=== PATIENT | male | born 1950 | race Caucasian/White ===

== ENCOUNTER 2020-10-22 11:10 | Inpatient (IN) | payer MEDICARE ==
[~2020-10-22] VITALS: Ht 188 cm; Wt 117.0 kg
[2020-10-22] VITALS (7 sets, daily range): BP systolic 79–130; BP diastolic 53–83
[~2020-10-22 11:10] MED LIST: etomidate 2mg/ml inj. ONE
[2020-10-22 11:20] LABS: ABG BASE EXCESS -2.8 mmol/L (-2.0-2.0); ABG HCO3 20.6 mmol/L (22.0-26.0); ABG OXYGEN SATURATION 76.3 % (94-97); ABG PCO2 (T) 32.1 mmHg (35.0-48.0); ABG PO2 (T) 41.4 mmHg (75.0-100.0); ALLEN'S TEST POSITIVE; FCOHb 1.4 % (0.0-3.9); FLOW 30 L/min; FMetHb 0.1 % (0.0-1.5); FO2Hb 75.2 % (94-97); TOTAL HEMOGLOBIN 13.9 G/dl (14.0-18.0)
[2020-10-22] MEDS ORDERED: FENTANYL-0.9 % NACL/PF 100 ML IV PRN (11:55)
[2020-10-22] MEDS ORDERED: midazolam 1 mg/ML 2ml injection IV ONE (11:55)
[2020-10-22] MEDS ORDERED: fentaNYL/PF 50MCG/1 ML 2ML syringe IV PRN (11:55)
[2020-10-22] MEDS ORDERED: midazolam 100mg in NS 100ml 100 ML IV PRN (11:55)
[2020-10-22 11:59] LABS: BASOPHILS # (AUTO) 0.1 X10'3 (0-0.2); BASOPHILS % (AUTO) 0.4 % (0-1); EOSINOPHILS % (AUTO) 0 % (0-6); HEMATOCRIT 40.9 % (42.0-52.0); HEMOGLOBIN 13.3 g/dl (14.0-17.9); LYMPHOCYTES # (AUTO) 0.5 X10'3 (1.1-4.8); MEAN CORPUSCULAR HEMOGLOBIN 29.6 PG (27.0-31.0); MEAN CORPUSCULAR HGB CONC 32.4 g/dL (33.0-36.5); MEAN CORPUSCULAR VOLUME 91.4 FL (78-98); MEAN PLATELET VOLUME 8.9 FL (7.4-10.4); MONOCYTES # (AUTO) 1.6 X10'3 (0-0.9); MONOCYTES % (AUTO) 6.7 % (2-12); NEUTROPHILS % (AUTO) 90.9 % (42-75); PLATELET COUNT 346 X10'3 (140-440); RED BLOOD COUNT 4.48 X10'6 (4.70-6.10); RED CELL DISTRIBUTION WIDTH 20.4 % (11.5-14.5); WHITE BLOOD COUNT 23.1 X10'3 (4.5-11.0)
[2020-10-22 12:02] LABS: D-DIMER 1.88 MG/L FEU (0-0.50)
[2020-10-22 12:05] LABS: ALANINE AMINOTRANSFERASE 19 U/L (12-78); ALBUMIN 2.4 G/DL (3.4-5.0); ALBUMIN/GLOBULIN RATIO 0.5 (1.1-1.5); ALKALINE PHOSPHATASE 175 IU/L (46-116); ANION GAP 8 (8-16); ASPARTATE AMINO TRANSFERASE 20 U/L (10-37); BLOOD UREA NITROGEN 45 MG/DL (7-18); BUN/CREATININE RATIO 24.7 (5.4-32.0); CALCIUM 8.6 MG/DL (8.5-10.1); CHLORIDE 106 MMOL/L (99-107); CREATININE 1.82 MG/DL (0.60-1.10); GLUCOSE 197 MG/DL (70-104); POTASSIUM 4.6 MMOL/L (3.5-5.1); SODIUM 138 MMOL/L (135-145); TOTAL CARBON DIOXIDE 24.1 MMOL/L (24-32); TOTAL PROTEIN 7.1 G/DL (6.4-8.2); eGFR 37 ML/MIN
[2020-10-22 12:12] LABS: TROPONIN I < 0.04 NG/ML (0.0-0.05)
[2020-10-22 12:31] LABS: ABG BASE EXCESS -2.6 mmol/L (-2.0-2.0); ABG HCO3 21.5 mmol/L (22.0-26.0); ABG OXYGEN SATURATION 95.8 % (94-97); ABG PCO2 (T) 35.4 mmHg (35.0-48.0); ABG PO2 (T) 87.1 mmHg (75.0-100.0); ALLEN'S TEST POSITIVE; FCOHb 1.2 % (0.0-3.9); FMetHb 0.2 % (0.0-1.5); FO2Hb 94.5 % (94-97); TOTAL HEMOGLOBIN 13.7 G/dl (14.0-18.0)
[2020-10-22 12:32] LABS: ANISOCYTOSIS 3+; PLATELET ESTIMATE NORMAL
[2020-10-22] MEDS ORDERED: morphine 2 MG/ML inj. syringe IV PRN (12:55)
[2020-10-22] MEDS ORDERED: cefepime 1GM/NS ADD-VANTAGE 100 ML IV SCH (12:55)
[2020-10-22] MEDS ORDERED: LIDOcaine 2% 10ml TOPICAL JELLY (Urojet) TP ONE (12:55)
[2020-10-22] MEDS ORDERED: morphine 4 MG/ML inj SYRINge IV PRN (12:55)
[2020-10-22] MEDS ORDERED: potassium Cl 40MEQ/1/2NS 520ml 520 ML IV PRN ×2 (12:55)
[2020-10-22] MEDS ORDERED: potassium Cl 20 mEq SR tablet PO PRN ×2 (12:55)
[2020-10-22] MEDS ORDERED: potassium Cl 40MEQ/250ML bag 270 ML IV PRN ×2 (12:55)
[2020-10-22] MEDS ORDERED: magnesium hydroxide 30ml (MOM) UD suspension PO PRN (12:55)
[2020-10-22] MEDS ORDERED: HYDROcodone/acetaminophen 10/325mg tab PO PRN (12:55)
[2020-10-22] MEDS ORDERED: ondansetron/PF 4mg/2ml inj IV PRN (12:55)
[2020-10-22] MEDS ORDERED: acetaminophen 325mg tablet PO PRN (12:55)
[2020-10-22] MEDS ORDERED: aztreonam inj. 2,000 MG in dextrose 5%-water 100 ML IV SCH (14:00)
[2020-10-22] MEDS ORDERED: aztreonam inj. 2,000 MG in normal saline 100ml IV soln 100 ML IV SCH (14:00)
[2020-10-22] MEDS: aztreonam inj. 2,000 MG in normal saline 100ml IV soln 100 ML IV SCH (14:46)
[2020-10-22] MEDS: normal saline 1000ml 1,000 ML IV SCH (14:46)
[2020-10-22] MEDS ORDERED: WARF-55 PO (14:58)
[2020-10-22] MEDS ORDERED: ENAL10TA19 PO (14:58)
[2020-10-22] MEDS ORDERED: ATOR40TA72 PO (14:58)
[2020-10-22] MEDS ORDERED: EZET10TA48 PO (14:58)
[2020-10-22] MEDS ORDERED: AMIO200T61 PO (14:58)
[2020-10-22] MEDS ORDERED: METO100T14 PO (14:58)
[2020-10-22] MEDS ORDERED: LORazepam 2 mg/ml vial IV ONE (17:30)
[2020-10-22] MEDS ORDERED: LORazepam 2 mg/ml vial ONE (17:34)
--- NOTE | 2020-10-22 17:45 | NUR ---
ASSUME CARE PT AWAKE TALKING WITH RT AT SITE ADJUSTING THE BIPAP FM. PT ANXIOUS ASKING OVER AND OVER FOR CELL PHONE REPOSITION TO BED WITHOUT DIFF DENIES PAIN, NOTED RR 33 SHALLOW ENC SLOW DEEP BREATHES. IV TO RIGHT HAND INTACT PURDY CATH TO GRAVITY DRAINING NEERU COLOR URINE. CONT TO MONITOR. Addendum: 10/22/20 at 1755 by Nida Palacios RN Amended: Links added.
[2020-10-22] MEDS: vancomycin/NS 1 GM ADD-VANTAGE 250 ML IV SCH (17:47)
--- NOTE | 2020-10-22 19:00 | NUR ---
RN Note -Called Dr. Yi for precedex for anxiety and agitation. Order received.
[2020-10-22] MEDS: docusate sod 100mg capsule PO SCH ×2 (19:41→22:42)
[2020-10-22] MEDS: heparin, porcine 5000 units/ml vial SQ SCH ×2 (20:00→20:05)
[2020-10-22] MEDS: dexmedetomidin/NS 400mcg/100ml 100 ML IV SCH (20:05)
[2020-10-22] MEDS: acetaminophen 325mg tablet PO PRN (22:42)
[2020-10-23] VITALS (23 sets, daily range): BP systolic 79–157; BP diastolic 43–89
[2020-10-23] MEDS: aztreonam inj. 2,000 MG in normal saline 100ml IV soln 100 ML IV SCH ×2 (00:27→08:09)
--- NOTE | 2020-10-23 04:00 | NUR ---
RN Note -Pt upset about Gecko getting in his eyes. Adjusted Gecko so it wasn't in his eyes. Pt upset about placement of Gecko. Lifted mask so pt could adjust Gecko to his liking, which he placed so that it was in his eyes. Replaced mask. Pt pulled Gecko off and threw it across the room.
[2020-10-23] MEDS: dexmedetomidin/NS 400mcg/100ml 100 ML IV SCH (04:08)
[2020-10-23] MEDS: normal saline 1000ml 1,000 ML IV SCH ×2 (05:33→21:54)
[2020-10-23] MEDS: acetaminophen 325mg tablet PO PRN ×3 (05:34→22:56)
[2020-10-23 06:07] LABS: BASOPHILS % (AUTO) 0.1 % (0-1); EOSINOPHILS % (AUTO) 0 % (0-6); HEMATOCRIT 34.8 % (42.0-52.0); HEMOGLOBIN 11.3 g/dl (14.0-17.9); LYMPHOCYTES # (AUTO) 0.4 X10'3 (1.1-4.8); MEAN CORPUSCULAR HEMOGLOBIN 29.4 PG (27.0-31.0); MEAN CORPUSCULAR HGB CONC 32.5 g/dL (33.0-36.5); MEAN CORPUSCULAR VOLUME 90.5 FL (78-98); MEAN PLATELET VOLUME 8.9 FL (7.4-10.4); MONOCYTES # (AUTO) 1.8 X10'3 (0-0.9); MONOCYTES % (AUTO) 10.5 % (2-12); NEUTROPHILS # (AUTO) 15.2 X10'3 (1.8-7.7); NEUTROPHILS % (AUTO) 87.4 % (42-75); PLATELET COUNT 304 X10'3 (140-440); RED BLOOD COUNT 3.85 X10'6 (4.70-6.10); RED CELL DISTRIBUTION WIDTH 19.6 % (11.5-14.5); WHITE BLOOD COUNT 17.4 X10'3 (4.5-11.0)
[2020-10-23 06:21] LABS: ALANINE AMINOTRANSFERASE 20 U/L (12-78); ALBUMIN/GLOBULIN RATIO 0.5 (1.1-1.5); ALKALINE PHOSPHATASE 154 IU/L (46-116); ANION GAP 8 (8-16); ASPARTATE AMINO TRANSFERASE 20 U/L (10-37); BILIRUBIN,TOTAL 0.7 MG/DL (0.1-1.0); BLOOD UREA NITROGEN 54 MG/DL (7-18); BUN/CREATININE RATIO 31.2 (5.4-32.0); CALCIUM 8.3 MG/DL (8.5-10.1); CHLORIDE 111 MMOL/L (99-107); CREATININE 1.73 MG/DL (0.60-1.10); GLUCOSE 129 MG/DL (70-104); MAGNESIUM 2.3 MG/DL (1.5-2.4); PHOSPHORUS 4.8 MG/DL (2.3-4.5); POTASSIUM 4.7 MMOL/L (3.5-5.1); SODIUM 143 MMOL/L (135-145); TOTAL CARBON DIOXIDE 24.5 MMOL/L (24-32); eGFR 39 ML/MIN
[2020-10-23] MEDS ORDERED: rocuronium 10mg/ml inj IV ONE (08:00)
[2020-10-23] MEDS ORDERED: sod chloride 0.9% 10ml flush syringe IV ONE (08:00)
[2020-10-23] MEDS ORDERED: etomidate 2mg/ml inj. ONE (08:00)
[2020-10-23] MEDS: heparin, porcine 5000 units/ml vial SQ SCH (08:00)
--- NOTE | 2020-10-23 08:00 | NUR ---
Desat quickly off bipap, unable to eat off bipap. tried non rebreather and sat drop 79%
--- NOTE | 2020-10-23 08:15 | NUR ---
0800 attempt drink of water on nonrebreather- sat dropped to 79%. rr 27, back on bipap 91-96% rr 16-20 with 85% fio2.
--- NOTE | 2020-10-23 08:44 | NUR ---
md palomo rounded and is adressing anticoags. pt refused heparin and is requesting elequis. will eval and place orders he said
--- NOTE | 2020-10-23 09:00 | NUR ---
Inspected pt sacral and lamberto area. he does not have a scrotal wound. his skin tto the lamberot area is intact and his rectum is red but blanches and intact. removed optifoam from over his rectum and did not reapply. turn q2
[2020-10-23] MEDS ORDERED: apixaban 5mg tablet PO SCH (09:40)
[2020-10-23] MEDS ORDERED: bisacodyl 10mg suppository rectal RC PRN (10:40)
[2020-10-23] MEDS: methylPREDNISolone sod succ 125mg/2ml vial IV SCH ×2 (10:59→19:52)
[2020-10-23] MEDS: polyethylene glycol 3350 17gm powd pack PO SCH (11:00)
[2020-10-23] MEDS: apixaban 5mg tablet PO SCH ×2 (11:03→19:53)
[2020-10-23 11:30] LABS: D-DIMER 2.27 MG/L FEU (0-0.50)
[2020-10-23 11:39] LABS: C-REACTIVE PROTEIN 9.86 MG/DL (0.0-0.5)
--- NOTE | 2020-10-23 14:50 | NUR ---
Renal US now
--- NOTE | 2020-10-23 15:00 | NUR ---
aprox this time venous doppler of legs completed and tech reports no "clots seen in either leg, no dvt". will cont to use scd's Addendum: 10/23/20 at 1755 by Rashard Torres RN as per order
[2020-10-23 15:33] LABS: CLARITY,URINE SLIGHTLY CLOUDY (Clear); COLOR,URINE YELLOW (Yellow); GLUCOSE, URINE NEGATIVE (Neg); KETONES,URINE NEGATIVE (Neg); LEUKOCYTE ESTERASE ,URINE NEGATIVE (Neg); NITRITES, URINE NEGATIVE (Neg); OCCULT BLOOD,URINE SMALL (Neg); PH,URINE 5.5 (4.8-8.0); PROTEIN,URINE NEGATIVE (Neg); UROBILINOGEN,URINE 0.2 E.U/dL (0.2-1.0)
[2020-10-23] MEDS: vancomycin/NS 1 GM ADD-VANTAGE 250 ML IV SCH (15:37)
[2020-10-23 15:41] LABS: TOTAL PROTEIN,URINE RANDOM 35.2 MG/DL
[2020-10-23 15:53] LABS: UA COLLECTION TYPE FOLEY CATH
[2020-10-23 15:54] LABS: URIC ACID CRYSTALS 4+ /HPF (NEGATIVE)
[2020-10-23 15:55] LABS: BACTERIA,URINE FEW /HPF (Neg); SQUAMOUS EPITHELIAL CELL,UR FEW /LPF (FEW); WBC,URINE 0-4 /HPF (0-4)
[2020-10-23 16:27] LABS: ABG BASE EXCESS -1.6 mmol/L (-2.0-2.0); ABG HCO3 22.5 mmol/L (22.0-26.0); ABG OXYGEN SATURATION 94.8 % (94-97); ABG PCO2 (T) 36.1 mmHg (35.0-48.0); ABG PO2 (T) 74.4 mmHg (75.0-100.0); ALLEN'S TEST POSITIVE; FCOHb 0.6 % (0.0-3.9); FMetHb 0.3 % (0.0-1.5); FO2Hb 93.9 % (94-97); PATIENT TEMPERATURE 36.9; TIDAL VOLUME 1113 mL; TOTAL HEMOGLOBIN 13.1 G/dl (14.0-18.0)
--- NOTE | 2020-10-23 16:28 | NUR ---
spoke to regarding daughters requirements to see dad tomorrow, reviewed that she needs a vac card or negative covid test <72hr old. Pt had ABG drawn near this time.
[2020-10-23 16:57] LABS: UA EOSINOPHILS NO EOS /HPF
--- NOTE | 2020-10-23 18:00 | NUR ---
assisted pt to eat meal- he ate the beef and potatoes, some salad and veggies. tolerated ok. held nonrebreather in oplace while he chewed and he maintained 86% during hurried meal. asid he wasnt" feeling gassed" as bad as earlier when off bipap. on bipap at 70% fio2 he quickly recovered to 91-92%. SPoke to MD gay around 1500 about his resp rate of 30-40 and crackles in bases and md said he is aware- no orders, pt was satting 91-92 at that time as well on 80% and he wanted to continue to ween cpap.
--- NOTE | 2020-10-23 18:15 | NUR ---
Patient in room ICU 2039. I have received report from Rashard GRIFFIN at bedside and had the opportunity to ask questions and assume patient care.
[2020-10-23] MEDS: lactobacillus rhamnosus 10,000 MMU CELLS/CAPSULE PO SCH (19:52)
[2020-10-23] MEDS: docusate sod 100mg capsule PO SCH (19:52)
[2020-10-23] MEDS ORDERED: risperiDONE 0.5mg tablet PO ONE (20:15)
--- NOTE | 2020-10-23 20:18 | NUR ---
Patient stated that he needs Melatonin to sleep & Ativan to calm him down. Called to Dr. Yi & Dr. Yi gave order of 10mg of Melatonin HS daily & one time dose 1mg of Risperdal.
[2020-10-23] MEDS: Melatonin 3mg tablet PO SCH (21:09)
[2020-10-24] VITALS (23 sets, daily range): BP systolic 107–157; BP diastolic 57–92
[2020-10-24] MEDS: aztreonam inj. 2,000 MG in normal saline 100ml IV soln 100 ML IV SCH ×4 (01:34→23:24)
[2020-10-24] MEDS: normal saline 1000ml 1,000 ML IV SCH ×2 (02:13→18:15)
[2020-10-24 06:15] LABS: BASOPHILS % (AUTO) 0.4 % (0-1); EOSINOPHILS % (AUTO) 0 % (0-6); HEMATOCRIT 36.2 % (42.0-52.0); HEMOGLOBIN 11.8 g/dl (14.0-17.9); LYMPHOCYTES # (AUTO) 0.3 X10'3 (1.1-4.8); LYMPHOCYTES % (AUTO) 2.4 % (21-51); MEAN CORPUSCULAR HGB CONC 32.5 g/dL (33.0-36.5); MEAN CORPUSCULAR VOLUME 92.3 FL (78-98); MEAN PLATELET VOLUME 8.5 FL (7.4-10.4); MONOCYTES # (AUTO) 0.9 X10'3 (0-0.9); MONOCYTES % (AUTO) 7.3 % (2-12); NEUTROPHILS # (AUTO) 11.2 X10'3 (1.8-7.7); NEUTROPHILS % (AUTO) 89.9 % (42-75); PLATELET COUNT 282 X10'3 (140-440); RED BLOOD COUNT 3.92 X10'6 (4.70-6.10); RED CELL DISTRIBUTION WIDTH 19.9 % (11.5-14.5); WHITE BLOOD COUNT 12.4 X10'3 (4.5-11.0)
[2020-10-24 06:29] LABS: ALANINE AMINOTRANSFERASE 20 U/L (12-78); ALBUMIN 1.9 G/DL (3.4-5.0); ALBUMIN/GLOBULIN RATIO 0.5 (1.1-1.5); ALKALINE PHOSPHATASE 143 IU/L (46-116); ANION GAP 9 (8-16); ASPARTATE AMINO TRANSFERASE 14 U/L (10-37); BILIRUBIN,TOTAL 0.6 MG/DL (0.1-1.0); BLOOD UREA NITROGEN 47 MG/DL (7-18); BUN/CREATININE RATIO 36.4 (5.4-32.0); CALCIUM 8.5 MG/DL (8.5-10.1); CHLORIDE 112 MMOL/L (99-107); CREATININE 1.29 MG/DL (0.60-1.10); GLUCOSE 169 MG/DL (70-104); MAGNESIUM 2.7 MG/DL (1.5-2.4); PHOSPHORUS 3.4 MG/DL (2.3-4.5); POTASSIUM 4.9 MMOL/L (3.5-5.1); SODIUM 145 MMOL/L (135-145); TOTAL CARBON DIOXIDE 23.9 MMOL/L (24-32); TOTAL PROTEIN 5.9 G/DL (6.4-8.2); eGFR 55 ML/MIN
--- NOTE | 2020-10-24 06:37 | NUR ---
Problems reprioritized. Patient report given, questions answered & plan of care reviewed with Ketan GRIFFIN at bedside.
[2020-10-24] MEDS: methylPREDNISolone sod succ 125mg/2ml vial IV SCH ×2 (08:44→19:36)
[2020-10-24] MEDS: amiodarone 200mg tablet PO SCH (08:45)
[2020-10-24] MEDS: lactobacillus rhamnosus 10,000 MMU CELLS/CAPSULE PO SCH ×2 (08:45→19:39)
[2020-10-24] MEDS: atorvastatin 20mg tablet PO SCH (08:45)
[2020-10-24] MEDS: apixaban 5mg tablet PO SCH ×2 (08:45→19:39)
[2020-10-24] MEDS: docusate sod 100mg capsule PO SCH ×2 (08:45→19:39)
[2020-10-24] MEDS: vancomycin/NS 1 GM ADD-VANTAGE 250 ML IV SCH ×2 (08:49→19:56)
[2020-10-24] MEDS: polyethylene glycol 3350 17gm powd pack PO SCH (08:49)
[2020-10-24] MEDS: pantoprazole 40mg Tablet.DR PO SCH (08:49)
[2020-10-24] MEDS: ezetimibe 10mg tablet PO SCH (09:47)
[2020-10-24 10:07] LABS: ANISOCYTOSIS 2+; BURR CELLS 2+; PLATELET ESTIMATE NORMAL
[2020-10-24 10:08] LABS: SCHISTOCYTES FEW
--- NOTE | 2020-10-24 12:36 | NUR ---
TPN Consult: Pt admit DX respiratory failure and JOHNSON improving hx recent COVID-19 infection off isolation per ID MD note. Pt PO 0% regular diet currently bipap dependent on 31L/min at 80% unable to tolerate PO or meds given desaturation per RN. Pending PICC line w/ TPN to start today per pilot captain; recs below. Noted sacral pinpoint breakdown w/ optifoam in place per EMR; picture in chart reviewed. LBM 9/6 previously receiving colace and miralax prior to current NPO status. Will monitor for PN tolerance and adjustment needs as medically indicated. Rec: 1. TPN via PICC line per MD using 2:1 Clinimix E 5/15 at 120ml/hr goal w/ separate 250ml 20% intralipids to run 12 hours each day at 20.83ml/hr. In total to provide 2880ml volume (25.3ml/kg), 144g AA, 432g DEX (2.64mg/kg/min), and 2545 total kcals. Initiate at 30ml/hr and if tolerated Q12H advance to goal. 2. PALB/TG Q /; daily wts 3. monitor for PN tolerance 4. bowel care per rx 5. advance PO diet as medically indicated per SENIOR MANAGER ASSET PROTECTION/MD recs to regular Addendum: 10/24/20 at [address] Amended: Links added.
[2020-10-24 13:48] LABS: PREALBUMIN 15.4 MG/DL (19-36); TRIGLYCERIDES 88 MG/DL (20-135)
[2020-10-24] MEDS ORDERED: Dextrose 10%-water IV solution 1,000 ML IV PRN (17:00)
[2020-10-24] MEDS: MVI, adult No.4 with vit. K 5 ML, ZINC/COPPER/MANGANESE/SELENIUM 0.5 ML, chromic chlori... IV SCH ×4 (17:37)
--- NOTE | 2020-10-24 18:10 | NUR ---
Patient in room ICU 2039. I have received report from Ketan GRIFFIN at bedside and had the opportunity to ask questions and assume patient care.
[2020-10-24] MEDS: Melatonin 3mg tablet PO SCH (19:39)
[2020-10-24] MEDS ORDERED: warfarin 5mg tablet PO SCH (21:00)
[2020-10-25] VITALS (25 sets, daily range): BP systolic 104–169; BP diastolic 45–97
[2020-10-25] MEDS ORDERED: MESSAGE TO PHARMACY PO ONE (02:10)
[2020-10-25] MEDS ORDERED: glucagon, human recombinant 1mg kit SUBCUT PRN (02:10)
[2020-10-25] MEDS ORDERED: dextrose ORAL solution 15 GM/59 ML bottle PO PRN ×2 (02:10)
[2020-10-25] MEDS ORDERED: dextrose 50%-water 50ml dispensing syringe IV PRN ×2 (02:10)
[2020-10-25] MEDS: normal saline 1000ml 1,000 ML IV SCH (05:01)
--- NOTE | 2020-10-25 06:18 | NUR ---
Problems reprioritized. Patient report given, questions answered & plan of care reviewed with Maureen GRIFFIN at bedside.
[2020-10-25] MEDS ORDERED: VANCOMYCIN LEVEL IV ONE (07:30)
[2020-10-25 08:36] LABS: BASOPHILS # (AUTO) 0.1 X10'3 (0-0.2); BASOPHILS % (AUTO) 0.5 % (0-1); EOSINOPHILS % (AUTO) 0.1 % (0-6); HEMOGLOBIN 12.2 g/dl (14.0-17.9); LYMPHOCYTES # (AUTO) 0.4 X10'3 (1.1-4.8); LYMPHOCYTES % (AUTO) 2.5 % (21-51); MEAN CORPUSCULAR HEMOGLOBIN 29.6 PG (27.0-31.0); MEAN CORPUSCULAR HGB CONC 32.2 g/dL (33.0-36.5); MEAN PLATELET VOLUME 8.5 FL (7.4-10.4); MONOCYTES # (AUTO) 1.4 X10'3 (0-0.9); MONOCYTES % (AUTO) 8.5 % (2-12); NEUTROPHILS # (AUTO) 15.1 X10'3 (1.8-7.7); NEUTROPHILS % (AUTO) 88.4 % (42-75); PLATELET COUNT 322 X10'3 (140-440); RED BLOOD COUNT 4.13 X10'6 (4.70-6.10); RED CELL DISTRIBUTION WIDTH 20.1 % (11.5-14.5); WHITE BLOOD COUNT 17.1 X10'3 (4.5-11.0)
[2020-10-25] MEDS: aztreonam inj. 2,000 MG in normal saline 100ml IV soln 100 ML IV SCH ×3 (08:37→23:28)
[2020-10-25] MEDS: methylPREDNISolone sod succ 125mg/2ml vial IV SCH ×2 (08:37→19:23)
[2020-10-25] MEDS: polyethylene glycol 3350 17gm powd pack PO SCH (08:37)
[2020-10-25] MEDS: atorvastatin 20mg tablet PO SCH (08:38)
[2020-10-25] MEDS: lactobacillus rhamnosus 10,000 MMU CELLS/CAPSULE PO SCH ×2 (08:38→20:25)
[2020-10-25] MEDS: vancomycin/NS 1 GM ADD-VANTAGE 250 ML IV SCH ×2 (08:38→17:00)
[2020-10-25] MEDS: docusate sod 100mg capsule PO SCH ×2 (08:38→20:25)
[2020-10-25] MEDS: ezetimibe 10mg tablet PO SCH (08:38)
[2020-10-25] MEDS: pantoprazole 40mg Tablet.DR PO SCH (08:38)
[2020-10-25] MEDS: amiodarone 200mg tablet PO SCH (08:38)
[2020-10-25] MEDS: apixaban 5mg tablet PO SCH ×2 (08:39→20:25)
[2020-10-25 09:03] LABS: ALANINE AMINOTRANSFERASE 18 U/L (12-78); ALBUMIN 2.1 G/DL (3.4-5.0); ALBUMIN/GLOBULIN RATIO 0.5 (1.1-1.5); ALKALINE PHOSPHATASE 140 IU/L (46-116); ANION GAP 7 (8-16); ASPARTATE AMINO TRANSFERASE 12 U/L (10-37); BILIRUBIN,TOTAL 0.5 MG/DL (0.1-1.0); BLOOD UREA NITROGEN 38 MG/DL (7-18); BUN/CREATININE RATIO 35.8 (5.4-32.0); C-REACTIVE PROTEIN 3.44 MG/DL (0.0-0.5); CALCIUM 8.4 MG/DL (8.5-10.1); CHLORIDE 112 MMOL/L (99-107); CREATININE 1.06 MG/DL (0.60-1.10); GLUCOSE 203 MG/DL (70-104); LACTATE DEHYDROGENASE 576 U/L (85-227); MAGNESIUM 2.5 MG/DL (1.5-2.4); PHOSPHORUS 3.3 MG/DL (2.3-4.5); POTASSIUM 5.2 MMOL/L (3.5-5.1); SODIUM 145 MMOL/L (135-145); TOTAL CARBON DIOXIDE 26.5 MMOL/L (24-32); TOTAL PROTEIN 6.1 G/DL (6.4-8.2); VANCOMYCIN,TROUGH 7.7 UG/ML (6.0-14.0); eGFR 69 ML/MIN
[2020-10-25 09:39] LABS: HEMOGLOBIN A1C 6.9 % (4.5-6.2)
--- NOTE | 2020-10-25 09:50 | NUR ---
500ml NS bolus adminstered per MD orders d/t CVP 1 Addendum: 10/25/20 at 1542 by Maureen Baez RN WRONG PATIENT
[2020-10-25 10:37] LABS: ANISOCYTOSIS 3+; BURR CELLS 1+; PLATELET ESTIMATE NORMAL; POLYCHROMASIA 1+; TOTAL CELLS COUNTED 100
--- NOTE | 2020-10-25 10:40 | NUR ---
New order for precedex - initiated
[2020-10-25] MEDS: dexmedetomidin/NS 400mcg/100ml 100 ML IV PRN ×2 (10:47→21:10)
--- NOTE | 2020-10-25 11:51 | NUR ---
TPN out - pharmacy to make and bring up. Hanging D10 in the meantime per PRN orders.
[2020-10-25] MEDS: MVI, adult No.4 with vit. K 5 ML, ZINC/COPPER/MANGANESE/SELENIUM 0.5 ML, chromic chlori... IV SCH ×8 (13:33→21:53)
[2020-10-25] MEDS: insulin regular, human U-100 3ml vial - multi-dose SQ SCH (14:32)
--- NOTE | 2020-10-25 18:31 | NUR ---
Problems reprioritized. Patient report given, questions answered & plan of care reviewed with ELIAS Mendez.
[2020-10-25] MEDS: Melatonin 3mg tablet PO SCH (20:26)
[2020-10-25] MEDS: insulin glargine (Lantus) pen - multi-dose SQ SCH (21:00)
[2020-10-25] MEDS: acetaminophen 325mg tablet PO PRN (22:06)
[2020-10-26] VITALS (23 sets, daily range): BP systolic 86–150; BP diastolic 54–91
[2020-10-26] MEDS: vancomycin/NS 1 GM ADD-VANTAGE 250 ML IV SCH ×3 (00:36→17:09)
[2020-10-26] MEDS: insulin regular, human U-100 3ml vial - multi-dose SQ SCH ×4 (02:23→20:20)
[2020-10-26] MEDS: MVI, adult No.4 with vit. K 5 ML, ZINC/COPPER/MANGANESE/SELENIUM 0.5 ML, chromic chlori... IV SCH ×8 (05:48→13:39)
[2020-10-26] MEDS: dexmedetomidin/NS 400mcg/100ml 100 ML IV PRN ×5 (06:34→23:06)
--- NOTE | 2020-10-26 06:38 | NUR ---
Problems reprioritized. Patient report given, questions answered & plan of care reviewed with ELIAS Ag.
--- NOTE | 2020-10-26 06:39 | NUR ---
Patient in room ICU 2039. I have received report from Vanessa GRIFFIN and had the opportunity to ask questions and assume patient care.
[2020-10-26 06:48] LABS: BASOPHILS % (AUTO) 0.3 % (0-1); EOSINOPHILS % (AUTO) 0.1 % (0-6); HEMATOCRIT 35.6 % (42.0-52.0); HEMOGLOBIN 11.6 g/dl (14.0-17.9); LYMPHOCYTES # (AUTO) 0.3 X10'3 (1.1-4.8); LYMPHOCYTES % (AUTO) 1.6 % (21-51); MEAN CORPUSCULAR HEMOGLOBIN 29.6 PG (27.0-31.0); MEAN CORPUSCULAR HGB CONC 32.8 g/dL (33.0-36.5); MEAN CORPUSCULAR VOLUME 90.2 FL (78-98); MEAN PLATELET VOLUME 8.5 FL (7.4-10.4); MONOCYTES # (AUTO) 1.1 X10'3 (0-0.9); MONOCYTES % (AUTO) 6.7 % (2-12); NEUTROPHILS # (AUTO) 15.5 X10'3 (1.8-7.7); NEUTROPHILS % (AUTO) 91.3 % (42-75); PLATELET COUNT 313 X10'3 (140-440); RED BLOOD COUNT 3.94 X10'6 (4.70-6.10); RED CELL DISTRIBUTION WIDTH 19.2 % (11.5-14.5)
[2020-10-26 07:12] LABS: ALANINE AMINOTRANSFERASE 14 U/L (12-78); ALBUMIN/GLOBULIN RATIO 0.6 (1.1-1.5); ALKALINE PHOSPHATASE 146 IU/L (46-116); ANION GAP 6 (8-16); ASPARTATE AMINO TRANSFERASE 16 U/L (10-37); BILIRUBIN,TOTAL 0.4 MG/DL (0.1-1.0); BLOOD UREA NITROGEN 40 MG/DL (7-18); BUN/CREATININE RATIO 40.8 (5.4-32.0); C-REACTIVE PROTEIN 1.35 MG/DL (0.0-0.5); CALCIUM 8.7 MG/DL (8.5-10.1); CHLORIDE 111 MMOL/L (99-107); CREATININE 0.98 MG/DL (0.60-1.10); GLUCOSE 187 MG/DL (70-104); LACTATE DEHYDROGENASE 735 U/L (85-227); MAGNESIUM 2.3 MG/DL (1.5-2.4); PHOSPHORUS 3.9 MG/DL (2.3-4.5); POTASSIUM 5.3 MMOL/L (3.5-5.1); SODIUM 144 MMOL/L (135-145); TOTAL CARBON DIOXIDE 27.2 MMOL/L (24-32); TOTAL PROTEIN 5.6 G/DL (6.4-8.2); eGFR 76 ML/MIN
[2020-10-26] MEDS ORDERED: VANCOMYCIN LEVEL IV ONE (07:30)
[2020-10-26] MEDS: aztreonam inj. 2,000 MG in normal saline 100ml IV soln 100 ML IV SCH ×3 (08:06→23:03)
[2020-10-26] MEDS: polyethylene glycol 3350 17gm powd pack PO SCH (08:06)
[2020-10-26] MEDS: pantoprazole 40mg Tablet.DR PO SCH (08:06)
[2020-10-26] MEDS: ezetimibe 10mg tablet PO SCH (08:06)
[2020-10-26] MEDS: lactobacillus rhamnosus 10,000 MMU CELLS/CAPSULE PO SCH ×2 (08:06→20:11)
[2020-10-26] MEDS: methylPREDNISolone sod succ 125mg/2ml vial IV SCH ×2 (08:06→20:12)
[2020-10-26] MEDS: amiodarone 200mg tablet PO SCH (08:07)
[2020-10-26] MEDS: docusate sod 100mg capsule PO SCH ×2 (08:07→20:11)
[2020-10-26] MEDS: atorvastatin 20mg tablet PO SCH (08:07)
[2020-10-26] MEDS: apixaban 5mg tablet PO SCH ×2 (08:07→20:11)
[2020-10-26] MEDS ORDERED: furosemide 40mg/4ml inj IV ONE (08:50)
--- NOTE | 2020-10-26 09:40 | NUR ---
Reassessment: Pt continues receiving TPN at goal rate and tolerating with no s/s refeeding. Noted serum K is elevated today though other electrolytes are WNL. No changes to nutrition recommendations at this time though will monitor need to change to non-electrolyte formula. LBM 10/24, documented to be receiving routine bowel care. Will continue to follow closely. Rec: 1. TPN via PICC line per MD using 2:1 Clinimix-E 06/29 at 120ml/hr goal with separate 250ml 20% intralipids to run 12 hours each day at 20.83ml/hr. In total to provide 2880ml volume (25.3ml/kg), 144g AA, 432g DEX (2.64mg/kg/min), and 2545 total kcals 2. Monitor electrolytes and need to change to non-electrolyte formula 3. PALB/TG q /; daily wts 4. monitor for PN tolerance 5. bowel care per rx 6. advance PO diet as medically indicated per RN TELEPHONE TRIAGE/MD recs to regular Addendum: 10/26/20 at [address] Amended: Links added.
[2020-10-26 10:25] LABS: ABG BASE EXCESS -0.1 mmol/L (-2.0-2.0); ABG PCO2 (T) 42.1 mmHg (35.0-48.0); ABG PO2 (T) 56.3 mmHg (75.0-100.0); ALLEN'S TEST POSITIVE; FCOHb 0.6 % (0.0-3.9); FMetHb 0.2 % (0.0-1.5); FO2Hb 87.3 % (94-97); TOTAL HEMOGLOBIN 14.1 G/dl (14.0-18.0)
--- NOTE | 2020-10-26 11:22 | NUR ---
F/u: Received TC from clinical pharmacist informing RD that current TPN formula is no longer available. TPN recommendations have been updated and d/w clinical pharmacist, see below. Rec: 1. TPN via PICC line using 2:1 Clinimix-E 5/20 at 110 mL/hr with separate 250 mL 20% intralipids to run at 20.83 mL/hr for 12 hours each day. In total to provide 2890 mL volume/day, 2823 kcal, 132 g AA, 528 g dextrose (3.60 mg/kg/min dext load), and 50 g lipids (17% kcal from fat) 2. Monitor electrolytes and need to change to non-electrolyte formula 3. PALB/TG q /; daily wts 4. monitor for PN tolerance 5. bowel care per rx 6. advance PO diet as medically indicated per CAFETERIA MANAGER/MD recs to regular Addendum: 10/26/20 at [address] Amended: Links added.
--- NOTE | 2020-10-26 12:40 | NUR ---
F/u: Received TC from clinical pharmacist informing RD that current TPN formula is no longer available. TPN recommendations have been updated and d/w clinical pharmacist, see below. Rec: 1. TPN via PICC line using 2:1 Clinimix-E 06/29 at 120 mL/hr with separate 250 mL 20% intralipids to run at 20.83 mL/hr for 12 hours each day. In total to provide 3130 mL volume/day, 2545 kcal, 144 g AA, 432 g dextrose (2.94 mg/kg/min dext load), and 50 g lipids (19.6% kcal from fat) 2. Monitor electrolytes and need to change to non-electrolyte formula 3. PALB/TG q /; daily wts 4. monitor for PN tolerance 5. bowel care per rx 6. advance PO diet as medically indicated per BUILD ENGINEER/MD recs to regular Addendum: 10/26/20 at [address] Amended: Links added.
[2020-10-26] MEDS: morphine 4 MG/ML inj SYRINge IV PRN ×8 (13:26→23:13)
--- NOTE | 2020-10-26 18:08 | NUR ---
Problems reprioritized. Patient report given, questions answered & plan of care reviewed with Ana GRIFFIN. Patient stable at transfer of care.
--- NOTE | 2020-10-26 18:30 | NUR ---
Patient in room ICU 2039. I have received report from Razia GRIFFIN and had the opportunity to ask questions and assume patient care.
[2020-10-26] MEDS: insulin glargine (Lantus) pen - multi-dose SQ SCH (20:21)
[2020-10-26] MEDS: Melatonin 3mg tablet PO SCH (20:24)
--- NOTE | 2020-10-26 22:00 | NUR ---
Patient converted to AFIB with a rate into the 150's. Notified Dr Estrada, new orders received.
[2020-10-26] MEDS ORDERED: amiodarone 150mg/dext, iso-os 100 ML IV ONE (22:20)
[2020-10-26] MEDS: amiodarone/D5 360MG/200ML BAG 200 ML IV SCH (22:28)
[2020-10-26] MEDS: ZINC/COPPER/MANGANESE/SELENIUM 0.5 ML, chromic chloride inj. 5 MCG in AA 5%/D15W/ELECTR... IV SCH (23:04)
[2020-10-27] VITALS (24 sets, daily range): BP systolic 81–138; BP diastolic 42–70
[2020-10-27] MEDS: vancomycin/NS 1 GM ADD-VANTAGE 250 ML IV SCH ×4 (00:13→22:56)
[2020-10-27] MEDS: morphine 4 MG/ML inj SYRINge IV PRN ×8 (01:19→22:35)
[2020-10-27] MEDS: insulin regular, human U-100 3ml vial - multi-dose SQ SCH ×4 (02:11→20:54)
[2020-10-27] MEDS: dexmedetomidin/NS 400mcg/100ml 100 ML IV PRN ×5 (02:12→21:58)
[2020-10-27 02:35] LABS: BASOPHILS # (AUTO) 0.1 X10'3 (0-0.2); BASOPHILS % (AUTO) 0.3 % (0-1); EOSINOPHILS % (AUTO) 0.1 % (0-6); HEMATOCRIT 37.4 % (42.0-52.0); HEMOGLOBIN 12.3 g/dl (14.0-17.9); LYMPHOCYTES # (AUTO) 0.3 X10'3 (1.1-4.8); LYMPHOCYTES % (AUTO) 1.6 % (21-51); MEAN CORPUSCULAR HGB CONC 32.9 g/dL (33.0-36.5); MEAN CORPUSCULAR VOLUME 91.3 FL (78-98); MEAN PLATELET VOLUME 8.7 FL (7.4-10.4); MONOCYTES # (AUTO) 1.1 X10'3 (0-0.9); MONOCYTES % (AUTO) 5.1 % (2-12); NEUTROPHILS # (AUTO) 20.1 X10'3 (1.8-7.7); NEUTROPHILS % (AUTO) 92.9 % (42-75); PLATELET COUNT 311 X10'3 (140-440); RED CELL DISTRIBUTION WIDTH 19.2 % (11.5-14.5); WHITE BLOOD COUNT 21.6 X10'3 (4.5-11.0)
[2020-10-27 02:45] LABS: ALANINE AMINOTRANSFERASE 16 U/L (12-78); ALBUMIN 1.9 G/DL (3.4-5.0); ALBUMIN/GLOBULIN RATIO 0.5 (1.1-1.5); ALKALINE PHOSPHATASE 168 IU/L (46-116); ANION GAP 7 (8-16); ASPARTATE AMINO TRANSFERASE 32 U/L (10-37); BILIRUBIN,TOTAL 0.5 MG/DL (0.1-1.0); BLOOD UREA NITROGEN 52 MG/DL (7-18); BUN/CREATININE RATIO 45.6 (5.4-32.0); C-REACTIVE PROTEIN 4.91 MG/DL (0.0-0.5); CALCIUM 8.7 MG/DL (8.5-10.1); CHLORIDE 112 MMOL/L (99-107); CREATININE 1.14 MG/DL (0.60-1.10); GLUCOSE 136 MG/DL (70-104); LACTATE DEHYDROGENASE 881 U/L (85-227); MAGNESIUM 2.4 MG/DL (1.5-2.4); PHOSPHORUS 3.9 MG/DL (2.3-4.5); POTASSIUM 5.1 MMOL/L (3.5-5.1); SODIUM 145 MMOL/L (135-145); TOTAL CARBON DIOXIDE 26.5 MMOL/L (24-32); TOTAL PROTEIN 5.5 G/DL (6.4-8.2); eGFR 64 ML/MIN
[2020-10-27 03:45] LABS: ANISOCYTOSIS 2+; BURR CELLS FEW; PLATELET ESTIMATE NORMAL; POLYCHROMASIA FEW; TOTAL CELLS COUNTED 100
[2020-10-27] MEDS: amiodarone/D5 360MG/200ML BAG 200 ML IV SCH (04:30)
--- NOTE | 2020-10-27 06:32 | NUR ---
Problems reprioritized. Patient report given, questions answered & plan of care reviewed with Efrain GRIFFIN.
[2020-10-27] MEDS: aztreonam inj. 2,000 MG in normal saline 100ml IV soln 100 ML IV SCH ×2 (07:29→15:51)
[2020-10-27] MEDS: pantoprazole 40mg Tablet.DR PO SCH (07:30)
[2020-10-27] MEDS: ZINC/COPPER/MANGANESE/SELENIUM 0.5 ML, chromic chloride inj. 5 MCG in AA 5%/D15W/ELECTR... IV SCH ×3 (07:44→23:49)
[2020-10-27] MEDS: apixaban 5mg tablet PO SCH (08:00)
[2020-10-27] MEDS: polyethylene glycol 3350 17gm powd pack PO SCH (08:00)
[2020-10-27] MEDS: atorvastatin 20mg tablet PO SCH (08:00)
[2020-10-27] MEDS: lactobacillus rhamnosus 10,000 MMU CELLS/CAPSULE PO SCH ×2 (08:00→18:47)
[2020-10-27] MEDS: docusate sod 100mg capsule PO SCH ×2 (08:00→18:47)
[2020-10-27] MEDS: ezetimibe 10mg tablet PO SCH (08:00)
[2020-10-27] MEDS ORDERED: NORepinephrine 8mg/ 250ml NS 250 ML IV PRN (08:05)
[2020-10-27] MEDS: methylPREDNISolone sod succ 125mg/2ml vial IV SCH ×3 (08:55→23:01)
[2020-10-27 09:11] LABS: D-DIMER 6.05 MG/L FEU (0-0.50)
--- NOTE | 2020-10-27 18:15 | NUR ---
Patient in room ICU 2039. I have received report from Efrain GRIFFIN at bedside and had the opportunity to ask questions and assume patient care.
[2020-10-27] MEDS: Melatonin 3mg tablet PO SCH (18:47)
[2020-10-27] MEDS: enoxaparin 100mg/ml syringe SUBCUT SCH (19:17)
[2020-10-27] MEDS: insulin glargine (Lantus) pen - multi-dose SQ SCH (20:55)
[2020-10-28] VITALS (26 sets, daily range): BP systolic 90–153; BP diastolic 49–85
[2020-10-28] MEDS: dexmedetomidin/NS 400mcg/100ml 100 ML IV PRN ×8 (00:37→23:43)
[2020-10-28] MEDS: aztreonam inj. 2,000 MG in normal saline 100ml IV soln 100 ML IV SCH ×4 (00:37→23:43)
[2020-10-28] MEDS: insulin regular, human U-100 3ml vial - multi-dose SQ SCH ×2 (02:05→20:45)
[2020-10-28] MEDS: diltiazem-NS 100mg/100ml 100 ML IV SCH ×2 (04:05→14:03)
[2020-10-28] MEDS: morphine 4 MG/ML inj SYRINge IV PRN ×8 (04:24→22:49)
[2020-10-28] MEDS ORDERED: pantoprazole 40MG/NS 100ML BAG 100 ML IV SCH (04:40)
[2020-10-28] MEDS ORDERED: furosemide 20 MG/2 ML vial IV ONE (05:15)
--- NOTE | 2020-10-28 06:15 | NUR ---
Problems reprioritized. Patient report given, questions answered & plan of care reviewed with Daily GRIFFIN at bedside.
--- NOTE | 2020-10-28 06:26 | NUR ---
Patient in room ICU 2045. I have received report from ELIAS Barber and had the opportunity to ask questions and assume patient care.
[2020-10-28] MEDS: pantoprazole 40 MG vial IV SCH (06:56)
[2020-10-28 07:21] LABS: BASOPHILS # (AUTO) 0.1 X10'3 (0-0.2); BASOPHILS % (AUTO) 0.4 % (0-1); EOSINOPHILS % (AUTO) 0.1 % (0-6); HEMATOCRIT 36.9 % (42.0-52.0); LYMPHOCYTES # (AUTO) 0.4 X10'3 (1.1-4.8); LYMPHOCYTES % (AUTO) 1.9 % (21-51); MEAN CORPUSCULAR HEMOGLOBIN 29.9 PG (27.0-31.0); MEAN CORPUSCULAR HGB CONC 32.5 g/dL (33.0-36.5); MEAN CORPUSCULAR VOLUME 92.1 FL (78-98); MEAN PLATELET VOLUME 8.9 FL (7.4-10.4); MONOCYTES # (AUTO) 0.8 X10'3 (0-0.9); MONOCYTES % (AUTO) 3.5 % (2-12); NEUTROPHILS # (AUTO) 22.6 X10'3 (1.8-7.7); NEUTROPHILS % (AUTO) 94.1 % (42-75); PLATELET COUNT 258 X10'3 (140-440); RED CELL DISTRIBUTION WIDTH 19.3 % (11.5-14.5)
[2020-10-28] MEDS: methylPREDNISolone sod succ 125mg/2ml vial IV SCH ×3 (07:25→20:08)
[2020-10-28 07:51] LABS: ALANINE AMINOTRANSFERASE 17 U/L (12-78); ALBUMIN 1.7 G/DL (3.4-5.0); ALBUMIN/GLOBULIN RATIO 0.4 (1.1-1.5); ALKALINE PHOSPHATASE 167 IU/L (46-116); ANION GAP 7 (8-16); ASPARTATE AMINO TRANSFERASE 30 U/L (10-37); BILIRUBIN,TOTAL 0.4 MG/DL (0.1-1.0); BLOOD UREA NITROGEN 54 MG/DL (7-18); BUN/CREATININE RATIO 52.9 (5.4-32.0); CALCIUM 8.8 MG/DL (8.5-10.1); CHLORIDE 111 MMOL/L (99-107); CREATININE 1.02 MG/DL (0.60-1.10); GLUCOSE 155 MG/DL (70-104); MAGNESIUM 2.4 MG/DL (1.5-2.4); PHOSPHORUS 3.7 MG/DL (2.3-4.5); POTASSIUM 5.4 MMOL/L (3.5-5.1); PREALBUMIN 20.7 MG/DL (19-36); SODIUM 142 MMOL/L (135-145); TOTAL CARBON DIOXIDE 24.5 MMOL/L (24-32); TOTAL PROTEIN 5.5 G/DL (6.4-8.2); TRIGLYCERIDES 53 MG/DL (20-135); eGFR 72 ML/MIN
[2020-10-28] MEDS: polyethylene glycol 3350 17gm powd pack PO SCH (08:00)
[2020-10-28] MEDS: ezetimibe 10mg tablet PO SCH (08:00)
[2020-10-28 08:12] LABS: ANISOCYTOSIS 2+; PLATELET ESTIMATE NORMAL; TOTAL CELLS COUNTED 100
[2020-10-28 08:13] LABS: BURR CELLS 2+; POLYCHROMASIA FEW; ROULEAUX 1+
[2020-10-28] MEDS: vancomycin/NS 1 GM ADD-VANTAGE 250 ML IV SCH ×2 (09:03→16:00)
[2020-10-28] MEDS: enoxaparin 100mg/ml syringe SUBCUT SCH ×2 (09:08→20:09)
[2020-10-28] MEDS: docusate sod 100mg capsule PO SCH ×2 (09:09→20:08)
[2020-10-28] MEDS: atorvastatin 20mg tablet PO SCH (09:09)
[2020-10-28] MEDS: lactobacillus rhamnosus 10,000 MMU CELLS/CAPSULE PO SCH ×2 (09:09→20:08)
[2020-10-28] MEDS: ZINC/COPPER/MANGANESE/SELENIUM 0.5 ML, chromic chloride inj. 5 MCG in AA 5%/D15W/ELECTR... IV SCH (09:24)
[2020-10-28] MEDS: ipratropium/albuterol 3ml nebule NEB SCH ×4 (11:08→23:26)
[2020-10-28] MEDS ORDERED: ipratropium/albuterol 3ml nebule NEB PRN (11:25)
[2020-10-28] MEDS: furosemide 40mg/4ml inj IV SCH ×3 (11:45→23:43)
--- NOTE | 2020-10-28 14:14 | NUR ---
Reassessment: Pt continues receiving TPN at goal rate and tolerating with no s/s refeeding. Received TC from Pharmacist that pt has to receive meds that cannot run at the same time as TPN and that TPN must be held for 6hr per day. Electric Organ Inspector And Repairer at rounds requests no K in TPN, new recs below given non E formula to run for only 18hr per day. Additional recs given for Clinimix 5/20 if 5/15 not available. LBM 10/24, documented to be receiving routine bowel care. Will continue to follow closely. Rec: 1) TPN via PICC line using 2:1 Clinimix non-E 5/15 at 147 mL/hr for 18hr with separate 250 mL 20% intralipids to run at 20.83 mL/hr for 12 hours each day. In total to provide 2896 mL volume/day, 2378 kcal, 132 g AA, 397 g dextrose (3.25 mg/kg/min GIR), and 50 g lipids. 2) Using Clinimix 5/20 non-E at 120ml/hr for 18hr with separate 250ml 20% intralipids to run at 20.83ml/hr for 12 hours each day. In total to provide 2160ml volume/day 2400kcals, 108g AA, 432g dextrose (3.54mg/kg/min GIR) and 50g lipids. 3) PALB/TG q /; daily wts 4) monitor for PN tolerance 5) bowel care per rx 6) advance PO diet as medically indicated per INSURANCE JOB TITLES/MD recs to regular Addendum: 10/28/20 at [address] Amended: Links added.
[2020-10-28] MEDS ORDERED: amiodarone/D5 360MG/200ML BAG 200 ML IV ONE (14:21)
[2020-10-28] MEDS ORDERED: amiodarone 150mg/dext, iso-os 100 ML IV ONE ×2 (14:36→14:40)
--- NOTE | 2020-10-28 14:55 | NUR ---
pt converted to afib with rvr,rate 160s,bp 141 83, dr. gay notified, amiodarone bolus started, followed by gtt ,pt taken off high flow cannula and non rebreather mask, placed back on cpap @100% fio2 by RT, pt medicated with 4 mg morphine iv with no change,pt cont with heart rate 145-160,bp stable
[2020-10-28] MEDS: amiodarone/D5 360MG/200ML BAG 200 ML IV SCH ×2 (15:09→20:10)
--- NOTE | 2020-10-28 18:29 | NUR ---
Problems reprioritized. Patient report given, questions answered & plan of care reviewed with OMAR RN.
[2020-10-28] MEDS: ZINC/COPPER/MANGANESE/SELENIUM 0.5 ML, chromic chloride inj. 5 MCG in AMINO ACIDS 5 %/D... IV SCH (20:08)
[2020-10-28] MEDS: insulin glargine (Lantus) pen - multi-dose SQ SCH (20:46)
[2020-10-28] MEDS: Melatonin 3mg tablet PO SCH (21:00)
[2020-10-29] VITALS (24 sets, daily range): BP systolic 84–153; BP diastolic 49–86
[2020-10-29] MEDS: vancomycin/NS 1 GM ADD-VANTAGE 250 ML IV SCH ×3 (00:49→21:16)
[2020-10-29] MEDS: dexmedetomidin/NS 400mcg/100ml 100 ML IV PRN ×6 (02:51→22:12)
[2020-10-29] MEDS: methylPREDNISolone sod succ 125mg/2ml vial IV SCH ×4 (02:53→21:15)
[2020-10-29] MEDS: amiodarone/D5 360MG/200ML BAG 200 ML IV SCH ×4 (02:53→19:54)
[2020-10-29 02:58] LABS: BASOPHILS # (AUTO) 0.2 X10'3 (0-0.2); BASOPHILS % (AUTO) 0.6 % (0-1); EOSINOPHILS % (AUTO) 0 % (0-6); HEMATOCRIT 36.3 % (42.0-52.0); HEMOGLOBIN 11.6 g/dl (14.0-17.9); LYMPHOCYTES # (AUTO) 0.3 X10'3 (1.1-4.8); LYMPHOCYTES % (AUTO) 1.3 % (21-51); MEAN CORPUSCULAR HEMOGLOBIN 29.8 PG (27.0-31.0); MEAN CORPUSCULAR VOLUME 93.1 FL (78-98); MEAN PLATELET VOLUME 9.2 FL (7.4-10.4); MONOCYTES # (AUTO) 1.1 X10'3 (0-0.9); MONOCYTES % (AUTO) 4.4 % (2-12); NEUTROPHILS # (AUTO) 23.3 X10'3 (1.8-7.7); NEUTROPHILS % (AUTO) 93.7 % (42-75); PLATELET COUNT 255 X10'3 (140-440); RED CELL DISTRIBUTION WIDTH 20.3 % (11.5-14.5); WHITE BLOOD COUNT 24.9 X10'3 (4.5-11.0)
[2020-10-29] MEDS: insulin regular, human U-100 3ml vial - multi-dose SQ SCH ×4 (02:58→21:13)
[2020-10-29 03:10] LABS: D-DIMER 2.13 MG/L FEU (0-0.50)
[2020-10-29 03:13] LABS: ALANINE AMINOTRANSFERASE 27 U/L (12-78); ALBUMIN 1.6 G/DL (3.4-5.0); ALBUMIN/GLOBULIN RATIO 0.4 (1.1-1.5); ALKALINE PHOSPHATASE 160 IU/L (46-116); ANION GAP 5 (8-16); ASPARTATE AMINO TRANSFERASE 25 U/L (10-37); BILIRUBIN,TOTAL 0.5 MG/DL (0.1-1.0); BLOOD UREA NITROGEN 74 MG/DL (7-18); C-REACTIVE PROTEIN 6.22 MG/DL (0.0-0.5); CALCIUM 8.3 MG/DL (8.5-10.1); CHLORIDE 111 MMOL/L (99-107); CREATININE 1.51 MG/DL (0.60-1.10); GLUCOSE 264 MG/DL (70-104); MAGNESIUM 2.3 MG/DL (1.5-2.4); PHOSPHORUS 4.6 MG/DL (2.3-4.5); POTASSIUM 4.8 MMOL/L (3.5-5.1); SODIUM 143 MMOL/L (135-145); TOTAL CARBON DIOXIDE 27.1 MMOL/L (24-32); TOTAL PROTEIN 5.3 G/DL (6.4-8.2); eGFR 46 ML/MIN
[2020-10-29] MEDS: ipratropium/albuterol 3ml nebule NEB SCH ×6 (03:23→23:12)
[2020-10-29 04:25] LABS: ANISOCYTOSIS 3+; PLATELET ESTIMATE NORMAL
--- NOTE | 2020-10-29 06:36 | NUR ---
Received report from forder operator RN. All questions answered.
[2020-10-29] MEDS: furosemide 40mg/4ml inj IV SCH ×2 (07:19→15:11)
[2020-10-29] MEDS: pantoprazole 40 MG vial IV SCH (07:19)
[2020-10-29] MEDS: enoxaparin 100mg/ml syringe SUBCUT SCH ×2 (07:20→21:16)
[2020-10-29] MEDS: docusate sod 100mg capsule PO SCH ×2 (07:24→20:00)
[2020-10-29] MEDS: polyethylene glycol 3350 17gm powd pack PO SCH (07:25)
[2020-10-29] MEDS: lactobacillus rhamnosus 10,000 MMU CELLS/CAPSULE PO SCH ×2 (07:25→20:00)
[2020-10-29] MEDS: ezetimibe 10mg tablet PO SCH (07:25)
[2020-10-29] MEDS: atorvastatin 20mg tablet PO SCH (07:25)
[2020-10-29] MEDS: morphine 4 MG/ML inj SYRINge IV PRN ×4 (07:31→22:25)
[2020-10-29] MEDS: aztreonam inj. 2,000 MG in normal saline 100ml IV soln 100 ML IV SCH ×2 (08:00→15:11)
[2020-10-29] MEDS ORDERED: MVI, adult No.4 with vit. K 10 ML in dextrose 5% water 500ml 500 ML IV SCH ×2 (08:00)
--- NOTE | 2020-10-29 10:50 | NUR ---
F/u 10/29: Pt received additional PIV so TPN does not need to be held for meds and can run for 24hr. See updated TPN recs, communicated w/ Pharmacy. Additional recs provided for Clinimix 5/20 non-E if 515 not available. Will continue to monitor Rec: 1. TPN via PICC line per MD using 2:1 Clinimix-E 5/15 non-E at 120ml/hr goal with separate 250ml 20% intralipids to run 12 hours each day at 20.83ml/hr. In total to provide 2880ml volume (25.3ml/kg), 144g AA, 432g DEX (2.64mg/kg/min), and 2545 total kcals 2) Using Clinimix 5/20 non-E at 95ml/hr for 24hr with separate 250ml 20% intralipids to run at 20.83ml/hr for 12 hours each day. In total to provide 2530ml volume/day 2506kcals, 114g AA, 456g dextrose (3.04mg/kg/min GIR) and 50g lipids. 3) PALB/TG q /; daily wts 4) monitor for PN tolerance 5) bowel care per rx 6) advance PO diet as medically indicated per TENTS ASSEMBLER/MD recs to regular Addendum: 10/29/20 at [address] Amended: Links added.
[2020-10-29] MEDS: ZINC/COPPER/MANGANESE/SELENIUM 0.5 ML, chromic chloride inj. 5 MCG in AMINO ACIDS 5 %/D... IV SCH (11:35)
[2020-10-29] MEDS: morphine 2 MG/ML inj. syringe IV PRN ×2 (13:01→19:53)
[2020-10-29] MEDS ORDERED: digoxin 250mcg/ml 2ml ampule IV ONE (17:30)
--- NOTE | 2020-10-29 18:07 | NUR ---
Report given to cnc machinist 2nd shift RN.
[2020-10-29] MEDS: metoprolol tartrate 25mg tablet PO SCH (20:00)
[2020-10-29] MEDS: diltiazem-NS 100mg/100ml 100 ML IV SCH (20:05)
[2020-10-29] MEDS: Melatonin 3mg tablet PO SCH (21:00)
[2020-10-29] MEDS: insulin glargine (Lantus) pen - multi-dose SQ SCH (21:30)
[2020-10-29] MEDS: digoxin 250mcg/ml 2ml ampule IV SCH (23:47)
[2020-10-30] VITALS (21 sets, daily range): BP systolic 93–117; BP diastolic 41–73
[2020-10-30] MEDS: furosemide 40mg/4ml inj IV SCH ×3 (00:44→16:00)
[2020-10-30] MEDS: morphine 4 MG/ML inj SYRINge IV PRN ×2 (01:31→07:57)
[2020-10-30] MEDS: digoxin 250mcg/ml 2ml ampule IV SCH (02:00)
[2020-10-30 02:52] LABS: BASOPHILS # (AUTO) 0.2 X10'3 (0-0.2); BASOPHILS % (AUTO) 0.6 % (0-1); EOSINOPHILS % (AUTO) 0 % (0-6); HEMATOCRIT 38.3 % (42.0-52.0); LYMPHOCYTES # (AUTO) 0.3 X10'3 (1.1-4.8); LYMPHOCYTES % (AUTO) 1.1 % (21-51); MEAN CORPUSCULAR HEMOGLOBIN 29.2 PG (27.0-31.0); MEAN CORPUSCULAR HGB CONC 31.4 g/dL (33.0-36.5); MEAN CORPUSCULAR VOLUME 93.1 FL (78-98); MEAN PLATELET VOLUME 8.9 FL (7.4-10.4); MONOCYTES # (AUTO) 1.3 X10'3 (0-0.9); MONOCYTES % (AUTO) 4.9 % (2-12); NEUTROPHILS # (AUTO) 25.8 X10'3 (1.8-7.7); NEUTROPHILS % (AUTO) 93.4 % (42-75); PLATELET COUNT 232 X10'3 (140-440); RED BLOOD COUNT 4.12 X10'6 (4.70-6.10); RED CELL DISTRIBUTION WIDTH 19.4 % (11.5-14.5)
[2020-10-30 02:57] LABS: WHITE BLOOD COUNT 27.7 X10'3 (4.5-11.0)
[2020-10-30] MEDS: insulin regular, human U-100 3ml vial - multi-dose SQ SCH ×3 (03:07→21:20)
[2020-10-30 03:09] LABS: ALANINE AMINOTRANSFERASE 33 U/L (12-78); ALBUMIN 1.6 G/DL (3.4-5.0); ALBUMIN/GLOBULIN RATIO 0.4 (1.1-1.5); ALKALINE PHOSPHATASE 146 IU/L (46-116); ANION GAP -6 (8-16); ASPARTATE AMINO TRANSFERASE 23 U/L (10-37); BILIRUBIN,TOTAL 0.4 MG/DL (0.1-1.0); BLOOD UREA NITROGEN 67 MG/DL (7-18); BUN/CREATININE RATIO 54.9 (5.4-32.0); C-REACTIVE PROTEIN 2.84 MG/DL (0.0-0.5); CALCIUM 8.3 MG/DL (8.5-10.1); CHLORIDE 108 MMOL/L (99-107); CREATININE 1.22 MG/DL (0.60-1.10); GLUCOSE 171 MG/DL (70-104); MAGNESIUM 2.2 MG/DL (1.5-2.4); PHOSPHORUS 3.2 MG/DL (2.3-4.5); POTASSIUM 4.4 MMOL/L (3.5-5.1); SODIUM 131 MMOL/L (135-145); TOTAL CARBON DIOXIDE 29.1 MMOL/L (24-32); TOTAL PROTEIN 5.4 G/DL (6.4-8.2); eGFR 59 ML/MIN
[2020-10-30] MEDS: methylPREDNISolone sod succ 125mg/2ml vial IV SCH ×4 (03:12→21:07)
[2020-10-30 03:13] LABS: D-DIMER 1.61 MG/L FEU (0-0.50)
[2020-10-30] MEDS: ZINC/COPPER/MANGANESE/SELENIUM 0.5 ML, chromic chloride inj. 5 MCG in AMINO ACIDS 5 %/D... IV SCH (03:13)
[2020-10-30] MEDS: aztreonam inj. 2,000 MG in normal saline 100ml IV soln 100 ML IV SCH ×3 (03:13→16:07)
[2020-10-30 03:26] LABS: PARTIAL THROMBOPLASTIN TIME 38 SECONDS (22-32)
[2020-10-30] MEDS: dexmedetomidin/NS 400mcg/100ml 100 ML IV PRN ×2 (03:41→06:48)
[2020-10-30] MEDS: ipratropium/albuterol 3ml nebule NEB SCH ×6 (03:47→23:08)
[2020-10-30 04:22] LABS: BANDS% (MANUAL) 2 % (0-10); LYMPHOCYTES % (MANUAL) 4 % (21-51); METAMYLEOCYTES% (MANUAL) 1 % (0-0); MONOCYTES % (MANUAL) 4 % (2-12); NEUTROPHILS % (MANUAL) 88 % (42-75); TOTAL CELLS COUNTED 100
[2020-10-30 04:23] LABS: ANISOCYTOSIS 2+; PLATELET ESTIMATE NORMAL
[2020-10-30] MEDS: amiodarone/D5 360MG/200ML BAG 200 ML IV SCH ×4 (05:48→20:20)
--- NOTE | 2020-10-30 06:58 | NUR ---
Patient in room ICU 2045. I have received report from Katie GRIFFIN and had the opportunity to ask questions and assume patient care. Pt supine in bed with HOB at 30 degrees, pt alert to light pain, CPAP at 100%FIO2; RR 24. safety measures maintained.
[2020-10-30] MEDS: vancomycin/NS 1 GM ADD-VANTAGE 250 ML IV SCH ×2 (07:56→20:00)
[2020-10-30] MEDS: enoxaparin 100mg/ml syringe SUBCUT SCH ×2 (07:57→21:12)
[2020-10-30] MEDS: docusate sod 100mg capsule PO SCH (07:58)
[2020-10-30] MEDS: lactobacillus rhamnosus 10,000 MMU CELLS/CAPSULE PO SCH (07:58)
[2020-10-30] MEDS: pantoprazole 40 MG vial IV SCH (07:58)
[2020-10-30] MEDS: ezetimibe 10mg tablet PO SCH (07:59)
[2020-10-30] MEDS: polyethylene glycol 3350 17gm powd pack PO SCH (07:59)
[2020-10-30] MEDS: metoprolol tartrate 25mg tablet PO SCH (07:59)
[2020-10-30] MEDS: atorvastatin 20mg tablet PO SCH (07:59)
--- NOTE | 2020-10-30 08:00 | NUR ---
paged pharmacy for abo dose "Azactam dose needed. unable to locate in fridge or omni. Thanks, Manda MITCHELL "
--- NOTE | 2020-10-30 09:16 | NUR ---
Dr. Silva to bedside. Per Dr. Silva, prepare intubation supplies at bedside. called and asked to come in [place] per Dr. Osorio request. per "i will be there in 15. we are in the car.." pt restless, tachypnic. therapeutic conversation employed, precedex ensured titrated up and pain addressed.
--- NOTE | 2020-10-30 09:37 | NUR ---
family at bedside. pt marginally calmer. pt continues to clap hands and point down throat and stated "intubate now" under CPAP mask. spo2 continues 99% on cpap 100%fio2
--- NOTE | 2020-10-30 09:52 | NUR ---
Dr. Ashby to see pt. Dr. Ashby verbalize agreement with pt's choice for intubation.
--- NOTE | 2020-10-30 09:54 | NUR ---
Dr. Fisher and Donna Price NP to see pt. per Doc, plan is to start on po amio when able.
--- NOTE | 2020-10-30 09:57 | NUR ---
Dr. Silva to bedside discussed risks vs benefits vs alternatives of intubation with pt and family. pt and family indicating desire for intubation davina. Per Dr. Silva, this will take place in the next 20 mins.
[2020-10-30] MEDS ORDERED: ipratropium/albuterol 3ml nebule NEB PRN (10:00)
[2020-10-30] MEDS ORDERED: etomidate 2mg/ml inj. IV ONE ×2 (10:00→16:13)
[2020-10-30] MEDS ORDERED: midazolam 1 mg/ML 2ml injection IV ONE (10:00)
[2020-10-30] MEDS ORDERED: fentaNYL/PF 50MCG/1 ML 2ML syringe IV PRN (10:00)
--- NOTE | 2020-10-30 10:22 | NUR ---
RT paged regarding impending intubation. "RE: Janes Martinez: 2045. Dr. Silva to intubate after rounds (about 10-15 mins)"
--- NOTE | 2020-10-30 10:57 | NUR ---
radiology paged "2045: Nate Martinez: pt intubated. ready for CXR. -thanks"
[2020-10-30] MEDS: midazolam 100mg in NS 100ml 100 ML IV PRN ×2 (11:13→21:06)
[2020-10-30] MEDS: FENTANYL-0.9 % NACL/PF 100 ML IV PRN ×2 (11:16→21:05)
[2020-10-30] MEDS: NORepinephrine 8mg/ 250ml NS 250 ML IV PRN ×2 (12:15→23:16)
[2020-10-30 12:25] LABS: ABG BASE EXCESS -2.6 mmol/L (-2.0-2.0); ABG OXYGEN SATURATION 93.6 % (94-97); ABG PCO2 (T) 89.1 mmHg (35.0-48.0); ABG PO2 (T) 84.9 mmHg (75.0-100.0); ALLEN'S TEST POSITIVE; FCOHb 0.4 % (0.0-3.9); FMetHb 0.4 % (0.0-1.5); FO2Hb 92.9 % (94-97); PEEP 10 cm H2O; RESPIRATORY RATE 20 b/min; TIDAL VOLUME 450 mL; TOTAL HEMOGLOBIN 13.9 G/dl (14.0-18.0)
--- NOTE | 2020-10-30 12:51 | NUR ---
Called Dr. Silva with ABG results Dr. Silva state to turn up TV to 500 on vent and set rate to 24.
[2020-10-30] MEDS ORDERED: digoxin 250mcg/ml 2ml ampule IV ONE (13:00)
--- NOTE | 2020-10-30 13:00 | NUR ---
Donna TECHNICAL LEAD rounded on pt. new order for digoxin 250mcg IV x1.
--- NOTE | 2020-10-30 14:01 | NUR ---
TF Consult: Pt intubated and w/ NGT this morning at request of pt and family. TF to start today per Medical Transcription at rounds, recommend taper TPN once pt is tolerating TF at half of goal rate. LBM 10/24. Will continue to monitor TF tolerance and make adjustments as medically indicated. Rec: 1) Continuous TF using Vital High Protein at 85ml/hr goal to provide 2040ml volume, 2040kcals, 210g protein, 1713ml H2O 2) Additional water flush 150ml Q4H, monitor serum sodium 3) PALB/TG q /; daily wts 4) bowel care per rx 5) Monitor TF tolerance Addendum: 10/30/20 at [address] Amended: Links added.
[2020-10-30] MEDS ORDERED: dextrose ORAL solution 15 GM/59 ML bottle NG PRN ×2 (16:02→16:03)
[2020-10-30] MEDS ORDERED: atorvastatin 20mg tablet NG SCH (16:02)
[2020-10-30] MEDS ORDERED: ezetimibe 10mg tablet NG SCH (16:03)
[2020-10-30] MEDS ORDERED: potassium Cl 20 mEq SR tablet NG PRN ×2 (16:04→16:05)
[2020-10-30] MEDS ORDERED: polyethylene glycol 3350 17gm powd pack NG SCH (16:04)
[2020-10-30] MEDS ORDERED: acetaminophen 325mg/10.15ml oral unit dose solution NG PRN ×2 (16:05)
--- NOTE | 2020-10-30 17:08 | NUR ---
CT called regarding CT scan orders. Per Chaparrita in CT scan, call when RT ready to transport pt down for CT.
--- NOTE | 2020-10-30 17:08 | NUR ---
Dr. Silva to see pt. New orders for CT scan of the neck without contrast. Addendum: 10/30/20 at 1724 by Manda Rodriguez RN correction: CT of chest ordered. Addendum: 10/30/20 at 1750 by Manda Rodriguez RN Called [facility]. order for CT of chest and neck
--- NOTE | 2020-10-30 17:26 | NUR ---
RT paged "RE: Janes Martinez: [id number]: ordered CT of chest for pt. CT said they are ready if you guys are available. Thanks, Manda "
--- NOTE | 2020-10-30 18:30 | NUR ---
Patient in room ICU 2045. I have received report from Manda GRIFFIN and had the opportunity to ask questions and assume patient care.
[2020-10-30] MEDS ORDERED: VANCOMYCIN LEVEL IV ONE (19:30)
[2020-10-30] MEDS: Melatonin 3mg tablet NG SCH (21:00)
--- NOTE | 2020-10-30 21:00 | NUR ---
[id number] and back, No difficulties. 2100- Low BS, pt treated with D50 Push, had been switched to TF from TPN today. Not to goal rate yet. Only Lantus given.
[2020-10-30] MEDS: docusate sodium 100mg/10ml UD cup NG SCH (21:07)
[2020-10-30] MEDS: lactobacillus rhamnosus 10,000 MMU CELLS/CAPSULE NG SCH (21:07)
[2020-10-30] MEDS: insulin glargine (Lantus) pen - multi-dose SQ SCH (21:19)
[2020-10-30] MEDS: metoprolol tartrate 25mg tablet NG SCH (21:35)
[2020-10-31] VITALS (24 sets, daily range): BP systolic 78–120; BP diastolic 38–75
[2020-10-31] MEDS: aztreonam inj. 2,000 MG in normal saline 100ml IV soln 100 ML IV SCH (00:34)
[2020-10-31] MEDS: methylPREDNISolone sod succ 125mg/2ml vial IV SCH ×4 (02:18→23:02)
[2020-10-31] MEDS: amiodarone/D5 360MG/200ML BAG 200 ML IV SCH ×3 (02:20→18:10)
[2020-10-31] MEDS: insulin regular, human U-100 3ml vial - multi-dose SQ SCH ×2 (02:35→23:12)
[2020-10-31 02:49] LABS: BASOPHILS # (AUTO) 0.7 X10'3 (0-0.2); BASOPHILS % (AUTO) 1.3 % (0-1); EOSINOPHILS # (AUTO) 0.1 X10'3 (0-0.9); EOSINOPHILS % (AUTO) 0.1 % (0-6); HEMATOCRIT 41.3 % (42.0-52.0); HEMOGLOBIN 12.5 g/dl (14.0-17.9); LYMPHOCYTES # (AUTO) 0.8 X10'3 (1.1-4.8); LYMPHOCYTES % (AUTO) 1.6 % (21-51); MEAN CORPUSCULAR HGB CONC 30.4 g/dL (33.0-36.5); MEAN CORPUSCULAR VOLUME 95.4 FL (78-98); MEAN PLATELET VOLUME 9.4 FL (7.4-10.4); MONOCYTES # (AUTO) 3.1 X10'3 (0-0.9); NEUTROPHILS # (AUTO) 46.8 X10'3 (1.8-7.7); PLATELET COUNT 363 X10'3 (140-440); RED BLOOD COUNT 4.33 X10'6 (4.70-6.10)
[2020-10-31 02:52] LABS: WHITE BLOOD COUNT 51.4 X10'3 (4.5-11.0)
[2020-10-31] MEDS: FENTANYL-0.9 % NACL/PF 100 ML IV PRN ×2 (02:57→10:05)
[2020-10-31 03:03] LABS: PARTIAL THROMBOPLASTIN TIME 37 SECONDS (22-32)
[2020-10-31 03:10] LABS: ALANINE AMINOTRANSFERASE 58 U/L (12-78); ALBUMIN 1.8 G/DL (3.4-5.0); ALBUMIN/GLOBULIN RATIO 0.5 (1.1-1.5); ALKALINE PHOSPHATASE 152 IU/L (46-116); ANION GAP 10 (8-16); ASPARTATE AMINO TRANSFERASE 38 U/L (10-37); BILIRUBIN,TOTAL 0.7 MG/DL (0.1-1.0); BLOOD UREA NITROGEN 90 MG/DL (7-18); BUN/CREATININE RATIO 35.4 (5.4-32.0); CALCIUM 8.4 MG/DL (8.5-10.1); CHLORIDE 110 MMOL/L (99-107); CREATININE 2.54 MG/DL (0.60-1.10); GLUCOSE 100 MG/DL (70-104); MAGNESIUM 2.4 MG/DL (1.5-2.4); PHOSPHORUS 7.1 MG/DL (2.3-4.5); POTASSIUM 5.5 MMOL/L (3.5-5.1); PREALBUMIN 35.6 MG/DL (19-36); SODIUM 146 MMOL/L (135-145); TOTAL CARBON DIOXIDE 25.7 MMOL/L (24-32); TOTAL PROTEIN 5.6 G/DL (6.4-8.2); TRIGLYCERIDES 104 MG/DL (20-135); eGFR 25 ML/MIN
[2020-10-31] MEDS: ipratropium/albuterol 3ml nebule NEB SCH ×6 (03:17→23:09)
[2020-10-31 03:28] LABS: ABG BASE EXCESS -6.6 mmol/L (-2.0-2.0); ABG HCO3 24.2 mmol/L (22.0-26.0); ABG OXYGEN SATURATION 93.4 % (94-97); ABG PCO2 (T) 76.1 mmHg (35.0-48.0); ABG PO2 (T) 77.3 mmHg (75.0-100.0); ALLEN'S TEST POSITIVE; FCOHb 0.9 % (0.0-3.9); FMetHb 0.4 % (0.0-1.5); FO2Hb 92.2 % (94-97); PATIENT TEMPERATURE 37.1; PEEP 10 cm H2O; RESPIRATORY RATE 25 b/min; TIDAL VOLUME 500 mL; TOTAL HEMOGLOBIN 13.5 G/dl (14.0-18.0)
[2020-10-31] MEDS: midazolam 100mg in NS 100ml 100 ML IV PRN ×2 (03:37→13:37)
[2020-10-31] MEDS: NORepinephrine 8mg/ 250ml NS 250 ML IV PRN ×6 (03:38→18:10)
[2020-10-31 03:53] LABS: TOTAL CELLS COUNTED 100
[2020-10-31 03:55] LABS: BANDS% (MANUAL) 2 % (0-10); LYMPHOCYTES % (MANUAL) 4 % (21-51); METAMYLEOCYTES% (MANUAL) 4 % (0-0); MONOCYTES % (MANUAL) 6 % (2-12); MYELOCYTES % (MANUAL) 2 % (0-0); NEUTROPHILS % (MANUAL) 82 % (42-75); NUCLEATED RED BLOOD CELLS 2 /100WBC (0-0)
[2020-10-31 04:24] LABS: PLATELET ESTIMATE NORMAL
--- NOTE | 2020-10-31 05:10 | NUR ---
Rounds with Tele MD, Vent changes made, fluid bolus started, critical lab values discussed.
--- NOTE | 2020-10-31 06:15 | NUR ---
Patient in room ICU 2045. I have received report from Isabela GRIFFIN and had the opportunity to ask questions and assume patient care.
--- NOTE | 2020-10-31 06:22 | NUR ---
Problems reprioritized. Patient report given, questions answered & plan of care reviewed with Mikey GRIFFIN.
[2020-10-31] MEDS ORDERED: normal saline 500ml IV soln 500 ML IV ONE (07:25)
[2020-10-31] MEDS: furosemide 40mg/4ml inj IV SCH ×2 (07:59)
[2020-10-31] MEDS: pantoprazole 40 MG vial IV SCH (08:00)
[2020-10-31] MEDS: lactobacillus rhamnosus 10,000 MMU CELLS/CAPSULE NG SCH ×2 (08:00→23:01)
[2020-10-31] MEDS: metoprolol tartrate 25mg tablet NG SCH (08:00)
[2020-10-31] MEDS: docusate sodium 100mg/10ml UD cup NG SCH ×2 (08:00→23:00)
[2020-10-31] MEDS: enoxaparin 100mg/ml syringe SUBCUT SCH (08:05)
[2020-10-31] MEDS ORDERED: vancomycin/NS 1 GM ADD-VANTAGE 250 ML IV SCH (09:00)
[2020-10-31] MEDS ORDERED: vasopressin inj. 40 UNIT in normal saline 50ml IV soln 38 ML IV SCH (09:20)
[2020-10-31] MEDS ORDERED: heparin 10,000 units/1 ML INJ IV PRN (11:20)
[2020-10-31] MEDS ORDERED: heparin 10,000 units/1 ML INJ IV ONE (11:20)
[2020-10-31] MEDS ORDERED: heparin 25,000 UNIT/250ml bag 250 ML IV SCH (11:20)
[2020-10-31] MEDS ORDERED: insulin regular, human 10 units/0.1 ml syringe IV ONE (11:20)
[2020-10-31] MEDS ORDERED: sodium polystyrene sulfonate 15gm/60ml oral suspension PO ONE ×2 (11:20→23:50)
[2020-10-31] MEDS ORDERED: amiodarone 200mg tablet PO SCH (11:35)
[2020-10-31] MEDS ORDERED: digoxin 250mcg (0.25mg) tablet PO SCH (11:35)
[2020-10-31] MEDS ORDERED: CALCIUM GLUC 1gm/50ml NACL,iso 50 ML IV ONE (11:50)
[2020-10-31] MEDS: calcium acetate 667mg (phosLO) tablet PO SCH ×2 (12:00→23:13)
[2020-10-31] MEDS: meropenem inj 500 MG in normal saline 100ml IV soln 100 ML IV SCH ×2 (12:58→23:02)
[2020-10-31] MEDS ORDERED: sevelamer carbonate 800mg tablet PO SCH (13:00)
[2020-10-31] MEDS: mineral oil/petrolatum ophthal oint EACHEYE SCH ×2 (14:00→23:19)
[2020-10-31] MEDS ORDERED: metoprolol tartrate 1mg/ml inj IV ONE (14:00)
[2020-10-31] MEDS ORDERED: metoprolol succinate 25mg (24-HOUR) SR. Tablet PO SCH (14:46)
[2020-10-31] MEDS ORDERED: metoprolol tartrate 25mg tablet PO SCH (14:49)
--- NOTE | 2020-10-31 15:00 | NUR ---
Medication issues Discussed w/CN incompatibility of added abx & antifungals. Need additional IV access. Called Dr. Benjamin and she agreed to put in CL & art. Family waited to sign consent after MD discussion. Family at beside from 1400 to 1615 and consent obtained from pts . Pt BP has been labile all day. Titrating Levo with a constant Vasopressin rate to maintain MAP > 60.
[2020-10-31 15:11] LABS: PARTIAL THROMBOPLASTIN TIME 44 SECONDS (22-32)
[2020-10-31 18:04] LABS: ABG BASE EXCESS -9.2 mmol/L (-2.0-2.0); ABG HCO3 21.6 mmol/L (22.0-26.0); ABG OXYGEN SATURATION 90.9 % (94-97); ABG PCO2 (T) 73.8 mmHg (35.0-48.0); FCOHb 0.3 % (0.0-3.9); FMetHb 0.6 % (0.0-1.5); FO2Hb 90.1 % (94-97); PEEP 10 cm H2O; RESPIRATORY RATE 30 b/min; TIDAL VOLUME 450 mL; TOTAL HEMOGLOBIN 12.1 G/dl (14.0-18.0)
--- NOTE | 2020-10-31 18:30 | NUR ---
Patient in room ICU 2045. I have received report from Mikey GRIFFIN and had the opportunity to ask questions and assume patient care.
--- NOTE | 2020-10-31 19:05 | NUR ---
Shift note Pt with labile BP and poor O2 sat all shift. Chasing BP constantly. MD inserted Rt Art line at 1745, followed by a Rt ground quad lumen for additional access.
--- NOTE | 2020-10-31 19:08 | NUR ---
Problems reprioritized. Patient report given, questions answered & plan of care reviewed with Karen GRIFFIN.
[2020-10-31] MEDS: micafungin inj 100 MG in normal saline 100ml IV soln 100 ML IV SCH (20:08)
[2020-10-31] MEDS: NORepinephrine 32 MG in Normal Saline 250ml IV soln IV SCH (21:30)
[2020-10-31] MEDS ORDERED: sodium bicarbonate (8.4%) 1 mEq/ml syringe IV ONE ×2 (22:00→23:50)
[2020-10-31] MEDS ORDERED: rocuronium 10mg/ml inj IV ONE (22:00)
[2020-10-31 23:11] LABS: ALANINE AMINOTRANSFERASE 55 U/L (12-78); ALBUMIN 1.8 G/DL (3.4-5.0); ALBUMIN/GLOBULIN RATIO 0.5 (1.1-1.5); ALKALINE PHOSPHATASE 149 IU/L (46-116); ANION GAP 13 (8-16); ASPARTATE AMINO TRANSFERASE 31 U/L (10-37); BILIRUBIN,TOTAL 0.6 MG/DL (0.1-1.0); BLOOD UREA NITROGEN 114 MG/DL (7-18); BUN/CREATININE RATIO 24.8 (5.4-32.0); CALCIUM 7.7 MG/DL (8.5-10.1); CHLORIDE 112 MMOL/L (99-107); CREATININE 4.59 MG/DL (0.60-1.10); GLUCOSE 215 MG/DL (70-104); SODIUM 146 MMOL/L (135-145); TOTAL CARBON DIOXIDE 21.5 MMOL/L (24-32); TOTAL PROTEIN 5.2 G/DL (6.4-8.2); eGFR 13 ML/MIN
[2020-10-31] MEDS: Melatonin 3mg tablet NG SCH (23:13)
[2020-10-31] MEDS: insulin glargine (Lantus) pen - multi-dose SQ SCH (23:13)
[2020-10-31 23:16] LABS: POTASSIUM 6.3 MMOL/L (3.5-5.1)
[2020-10-31] MEDS ORDERED: CISatracurium besylate inj. 100 MG in normal saline 100ml IV soln 90 ML IV PRN (23:50)
[2020-11-01] VITALS (13 sets, daily range): BP systolic 0–88; BP diastolic 0–55
[2020-11-01] MEDS: NORepinephrine 32 MG in Normal Saline 250ml IV soln IV SCH ×2 (00:53→04:57)
[2020-11-01] MEDS: FENTANYL-0.9 % NACL/PF 100 ML IV PRN (01:32)
[2020-11-01] MEDS: mineral oil/petrolatum ophthal oint EACHEYE SCH (01:33)
[2020-11-01] MEDS: meropenem inj 500 MG in normal saline 100ml IV soln 100 ML IV SCH ×2 (01:33→08:40)
[2020-11-01] MEDS: methylPREDNISolone sod succ 125mg/2ml vial IV SCH ×2 (01:33→08:36)
[2020-11-01] MEDS: midazolam 100mg in NS 100ml 100 ML IV PRN (01:33)
[2020-11-01 01:39] LABS: CLARITY,URINE CLOUDY (Clear); COLOR,URINE BROWN (Yellow); GLUCOSE, URINE NEGATIVE (Neg); PROTEIN,URINE 100 mg/dl (Neg); UA COLLECTION TYPE FOLEY CATH
[2020-11-01 01:40] LABS: KETONES,URINE TRACE mg/dl (Neg); LEUKOCYTE ESTERASE ,URINE NEGATIVE (Neg); NITRITES, URINE NEGATIVE (Neg); OCCULT BLOOD,URINE LARGE (Neg)
[2020-11-01 02:06] LABS: BACTERIA,URINE 2+ /HPF (Neg); RBC,URINE TNTC /HPF (0-2); WBC,URINE 0-4 /HPF (0-4)
[2020-11-01 02:07] LABS: SQUAMOUS EPITHELIAL CELL,UR NONE SEEN /LPF (FEW)
[2020-11-01] MEDS: ipratropium/albuterol 3ml nebule NEB SCH ×2 (02:30→07:49)
[2020-11-01 02:40] LABS: UA EOSINOPHILS NO EOS /HPF
[2020-11-01 02:40] LABS: ABG BASE EXCESS -8.5 mmol/L (-2.0-2.0); ABG HCO3 22.9 mmol/L (22.0-26.0); ABG OXYGEN SATURATION 79.3 % (94-97); ABG PCO2 (T) 87.6 mmHg (35.0-48.0); ABG PO2 (T) 53.7 mmHg (75.0-100.0); FCOHb 0.3 % (0.0-3.9); FMetHb 0.5 % (0.0-1.5); FO2Hb 78.7 % (94-97); PATIENT TEMPERATURE 37.5; PEEP 14 cm H2O; RESPIRATORY RATE 30 b/min; TIDAL VOLUME 500 mL; TOTAL HEMOGLOBIN 10.7 G/dl (14.0-18.0)
[2020-11-01 03:27] LABS: BASOPHILS # (AUTO) 0.2 X10'3 (0-0.2); EOSINOPHILS % (AUTO) 0 % (0-6); HEMOGLOBIN 9.1 g/dl (14.0-17.9); MEAN PLATELET VOLUME 10.1 FL (7.4-10.4)
[2020-11-01 03:35] LABS: BASOPHILS % (AUTO) 0.3 % (0-1); HEMATOCRIT 30.1 % (42.0-52.0); LYMPHOCYTES # (AUTO) 0.7 X10'3 (1.1-4.8); LYMPHOCYTES % (AUTO) 1.5 % (21-51); MEAN CORPUSCULAR HEMOGLOBIN 29.5 PG (27.0-31.0); MEAN CORPUSCULAR HGB CONC 30.2 g/dL (33.0-36.5); MEAN CORPUSCULAR VOLUME 97.6 FL (78-98); MONOCYTES # (AUTO) 2.8 X10'3 (0-0.9); MONOCYTES % (AUTO) 6.2 % (2-12); NEUTROPHILS # (AUTO) 40.9 X10'3 (1.8-7.7); PLATELET COUNT 249 X10'3 (140-440); RED BLOOD COUNT 3.08 X10'6 (4.70-6.10); RED CELL DISTRIBUTION WIDTH 19.9 % (11.5-14.5)
[2020-11-01] MEDS: insulin regular, human U-100 3ml vial - multi-dose SQ SCH (03:35)
[2020-11-01 03:38] LABS: D-DIMER 2.38 MG/L FEU (0-0.50); PARTIAL THROMBOPLASTIN TIME 47 SECONDS (22-32); WHITE BLOOD COUNT 44.5 X10'3 (4.5-11.0)
[2020-11-01 03:44] LABS: ALANINE AMINOTRANSFERASE 45 U/L (12-78); ALBUMIN 1.5 G/DL (3.4-5.0); ALBUMIN/GLOBULIN RATIO 0.5 (1.1-1.5); ALKALINE PHOSPHATASE 128 IU/L (46-116); ANION GAP 10 (8-16); ASPARTATE AMINO TRANSFERASE 30 U/L (10-37); BILIRUBIN,TOTAL 0.5 MG/DL (0.1-1.0); BLOOD UREA NITROGEN 115 MG/DL (7-18); BUN/CREATININE RATIO 23.1 (5.4-32.0); C-REACTIVE PROTEIN 0.86 MG/DL (0.0-0.5); CHLORIDE 115 MMOL/L (99-107); CREATININE 4.97 MG/DL (0.60-1.10); GLUCOSE 227 MG/DL (70-104); MAGNESIUM 2.3 MG/DL (1.5-2.4); PHOSPHORUS 8.5 MG/DL (2.3-4.5); POTASSIUM 5.5 MMOL/L (3.5-5.1); SODIUM 149 MMOL/L (135-145); TOTAL CARBON DIOXIDE 23.8 MMOL/L (24-32); TOTAL PROTEIN 4.3 G/DL (6.4-8.2); eGFR 12 ML/MIN
[2020-11-01 04:51] LABS: BANDS% (MANUAL) 8 % (0-10); LYMPHOCYTES % (MANUAL) 3 % (21-51); METAMYLEOCYTES% (MANUAL) 8 % (0-0); MONOCYTES % (MANUAL) 7 % (2-12); MYELOCYTES % (MANUAL) 4 % (0-0); NEUTROPHILS % (MANUAL) 70 % (42-75); PLATELET ESTIMATE NORMAL; TOTAL CELLS COUNTED 100
[2020-11-01] MEDS: PHENYLephrine 10mg/ml inj. 50 MG in normal saline 250ml IV soln 245 ML IV SCH ×2 (05:10→08:39)
[2020-11-01] MEDS: amiodarone/D5 360MG/200ML BAG 200 ML IV SCH (05:15)
--- NOTE | 2020-11-01 06:15 | NUR ---
Patient in room ICU 2045. I have received report from Karen GRIFFIN and had the opportunity to ask questions and assume patient care.
--- NOTE | 2020-11-01 06:31 | NUR ---
Problems reprioritized. Patient report given, questions answered & plan of care reviewed with Mikey GRIFFIN.
--- NOTE | 2020-11-01 07:24 | NUR ---
Fam Call Spoke with daughter. Told her his condition is much worse this am and they really needed to come in. She said okay, we'll be right there and hung up.
[2020-11-01] MEDS ORDERED: vancomycin/NS 1 GM ADD-VANTAGE 250 ML IV PRN (08:00)
[2020-11-01] MEDS ORDERED: enoxaparin 100mg/ml syringe SUBCUT SCH (08:00)
[2020-11-01] MEDS: pantoprazole 40 MG vial IV SCH (08:40)
[2020-11-01] MEDS: micafungin inj 100 MG in normal saline 100ml IV soln 100 ML IV SCH (08:40)
[2020-11-01] MEDS ORDERED: morphine 10mg/ml inj. IV PRN (09:10)
[2020-11-01] MEDS ORDERED: LORazepam 2 mg/ml vial IV PRN (09:10)
--- NOTE | 2020-11-01 09:30 | NUR ---
Comfort came to me to move to comfort measures. Supportive meds were d/c'd, kept Versed & Fentanyl for pain/sedation. Family played favorite music as he . At 1000 pt was asystole, no lung sounds or heart sounds and pt pronounced . Dr. Benjamin notified shortly after asystole. Family remained at bedside until about 1040. Mortuary was identified and consent signed. Donor network contacted as well.
[2020-11-01] MEDS ORDERED: calcium acetate 667mg (PhosLO) capsule PO SCH (10:42)
--- NOTE | 2020-11-01 10:54 | NUR ---
Mortuary: Contacted Tim at [facility] in [place]. He will be 3 hrs before in transit.
--- NOTE | 2020-11-01 11:05 | NUR ---
Post Mort Care provided by RN students and NA. Awaiting mortuary arrival.
[2020-11-02] MEDS ORDERED: VANCOMYCIN LEVEL IV SCH (03:00)
[2020-11-03] MEDS ORDERED: VANCOMYCIN LEVEL IV ONE (08:30)
== END 2020-11-01 15:17 | DRG 871 ==
LOC: ER 11:10 → ED HOLD 12:59 → ICU 2S 15:20
PROVIDERS: ADMIT Internal Medicine Critical Care Medicine; ATTEND Internal Medicine Critical Care Medicine
PROC: 5A09557 Assistance with Respiratory Ventilation, Greater than 96 Consecutive Hours, Continuous Positive Airway Pressure (ICD-10-PCS; 2020-10-22)
PROC: 02HV33Z Insertion of Infusion Device into Superior Vena Cava, Percutaneous Approach (ICD-10-PCS; 2020-10-24)
PROC: B548ZZA Ultrasonography of Superior Vena Cava, Guidance (ICD-10-PCS; 2020-10-24)
PROC: 5A0935A Assistance with Respiratory Ventilation, Less than 24 Consecutive Hours, High Flow/Velocity Cannula (ICD-10-PCS; 2020-10-28)
PROC: 5A09457 Assistance with Respiratory Ventilation, 24-96 Consecutive Hours, Continuous Positive Airway Pressure (ICD-10-PCS; 2020-10-28)
PROC: 5A1945Z Respiratory Ventilation, 24-96 Consecutive Hours (ICD-10-PCS; principal; 2020-10-30)
PROC: 0BH17EZ Insertion of Endotracheal Airway into Trachea, Via Natural or Artificial Opening (ICD-10-PCS; 2020-10-30)
PROC: 04HY32Z Insertion of Monitoring Device into Lower Artery, Percutaneous Approach (ICD-10-PCS; 2020-10-31)
PROC: 4A133B1 Monitoring of Arterial Pressure, Peripheral, Percutaneous Approach (ICD-10-PCS; 2020-10-31)
PROC: 4A133J1 Monitoring of Arterial Pulse, Peripheral, Percutaneous Approach (ICD-10-PCS; 2020-10-31)
DX: A41.9 Sepsis, unspecified organism (principal); J80 Acute respiratory distress syndrome; J12.82 Pneumonia due to coronavirus disease 2019; U07.1 COVID-19; N17.9 Acute kidney failure, unspecified; I13.0 Hypertensive heart and chronic kidney disease with heart failure and stage 1 through stage 4 chronic kidney disease, or unspecified chronic kidney disease; I42.9 Cardiomyopathy, unspecified; I45.2 Bifascicular block; R57.9 Shock, unspecified; E87.2 Acidosis; E78.00 Pure hypercholesterolemia, unspecified; E78.5 Hyperlipidemia, unspecified; E87.5 Hyperkalemia; Z66 Do not resuscitate; Z51.5 Encounter for palliative care; J98.2 Interstitial emphysema; G47.33 Obstructive sleep apnea (adult) (pediatric); K21.9 Gastro-esophageal reflux disease without esophagitis; M19.90 Unspecified osteoarthritis, unspecified site; I48.0 Paroxysmal atrial fibrillation; I50.9 Heart failure, unspecified; F41.9 Anxiety disorder, unspecified; R00.1 Bradycardia, unspecified; N18.9 Chronic kidney disease, unspecified; Z79.01 Long term (current) use of anticoagulants; Z80.3 Family history of malignant neoplasm of breast; Z82.49 Family history of ischemic heart disease and other diseases of the circulatory system; Z86.711 Personal history of pulmonary embolism; Z86.718 Personal history of other venous thrombosis and embolism; Z88.0 Allergy status to penicillin; Z90.49 Acquired absence of other specified parts of digestive tract; Z79.899 Other long term (current) drug therapy
CPT/HCPCS: 36415; 36573; 36600; 70490; 71045; 71250; 74018; 76770; 80053; 80162; 80202; 81001; 82570; 82800; 82803; 82948; 83036; 83605; 83615; 83735; 83880; 84100; 84134; 84145; 84156; 84300; 84439; 84443; 84478; 84484; 85007; 85008; 85018; 85025; 85379; 85610; 85730; 86140; 87040; 87070; 87081; 87207; 87635; 93005; 93306; 93970; 94002; 94003; 94640; 94660; 94760; 94799; 99291; C9113; G0378; J1160; J1644; J1650; J1815; J1940; J2060; J2185; J2248; J2270; J2370; J2930; J3010; J3370; J3490; J7030; J7050; J7060